=== PATIENT | male | born 1950 | race Hispanic/Latino ===

== ENCOUNTER 2017-12-14 07:12 | Day surgery (SDC) | payer OTHER ==
[2017-12-14] MEDS ORDERED: Ringers Lactate 1,000 ML IV ONE ×2 (07:27→10:21)
[2017-12-14] MEDS ORDERED: FENTANYL CITR 100 MCG/2 ML ONE (08:13)
[2017-12-14] MEDS ORDERED: LIDOCAINE 1% MPF 5 ML VIAL ONE (08:13)
[2017-12-14] MEDS ORDERED: MIDAZOLAM HCL 2 MG/2 ML INJ ONE (08:13)
[2017-12-14] MEDS ORDERED: PROPOFOL 200 MG/20 ML VIAL IV ONE (08:13)
--- NOTE | 2017-12-14 09:04 | P.HP ---
Date of Service: 12/14/17 PC: This 67-year-old male presents for excision of a large mass on his back. HPC: Patient has had area back for the last few years has gradually increased in size. Now causing considerable pain and discomfort. Hurts whenever he tries to lay down, worse in the chair. PMH: CAD hypertension SOC: No known allergy SYS REVIEW: No cough, wheeze, shortness of breath. No chest pain or palpitations. No urinary complaints O/E awake alert stable HEENT: Not jaundiced Chest: Chest movement equal bilaterally ABD: Intact LOCO: Patient has a large 6 x 4 inch mass on his back. Inferior soft and mobile. Possible lipoma. DATA: Within normal limits IMPRESSION: Large mass on the patient's back protruding about 3 inches in height as well as his other dimensions. Possible lipoma PLAN: I will take him to the operating room for excision of this mass on his back. The risks of this procedure have been discussed. The possibility of bleeding, infection, injury to the muscles nerves and blood vessels was explained. The possible need for further surgeries and procedures was outlined. He understands and wants us to proceed.
[2017-12-14] MEDS ORDERED: CEFAZOLIN/SWI 1gm 1 GM/10 ML SYR ONE (09:06)
[2017-12-14] MEDS ORDERED: EPHEDRINE SULF 50 MG/10 ML SYR ONE (09:43)
[2017-12-14] MEDS ORDERED: KETOROLAC 30 MG/ML INJ ONE (09:43)
[2017-12-14] MEDS ORDERED: ONDANSETRON 4 MG/2 ML VIAL ONE (09:43)
--- NOTE | 2017-12-14 10:14 | P.OP ---
Preoperative diagnosis: Mass on the back Postoperative diagnosis: The same Primary procedure: Wide excision of mass on the back Anesthesia: General Estimated blood loss: Less than 10 cc Specimen: Sent for histopathology Operative Technique: The patient brought to the operating room and placed supine on the table. After the induction of adequate general anesthesia, the patient was rolled in the left lateral position. The area of the back was then prepped with a DuraPrep solution, the use draped in usual aseptic manner. A skin incision was made. This brought down through the skin and subcutaneous tissue. In this area we encounter this large lipoma this mass. It measured approximately 6-1/2 x 5-1/2 by 3 to have inches. And was gently dissected away from the skin was extended all way down to the fascia. It was excise off the fascia and then sent for histopathology. At this point the wound was inspected to ensure adequate hemostasis. This having mean down 6 interrupted sutures of Maxon were used to approximate the subcutaneous tissue. The skin was then closed with mona. At the end of the procedure he was stable when sent to the recovery room. Needle sponge instrument count were correct. No drains were placed. Complications: None Transferred to: Recovery Room Condition: Good
== END 2017-12-14 11:40 | disposition home or self-care (01) ==
LOC: OR 07:12
PROVIDERS: ATTEND Surgery
PROC: 0JB70ZZ Excision of Back Subcutaneous Tissue and Fascia, Open Approach (ICD-10-PCS; principal; 2017-12-14 08:30)
DX: R22.2 Localized swelling, mass and lump, trunk (principal); I10 Essential (primary) hypertension; I25.10 Atherosclerotic heart disease of native coronary artery without angina pectoris
CPT/HCPCS: 21931; 88304; J0690; J2250; J2405; J3010; 88305; J2704